=== PATIENT | male | born 1980 | race Hispanic/Latino ===

== ENCOUNTER 2017-01-13 04:28 | Emergency (ER) | payer OTHER ==
[2017-01-13 06:02] LABS: Basophils % (Auto) 0.7 % (0.0-1.8); Eosinophils % (Auto) 1.3 % (0.0-4.3); Mean Corpuscular HGB Conc 30 % (32-34); Platelet Count 450 K/mm3 (140-440); Red Blood Count 5.26 M/mm3 (3.65-5.03); White Blood Count 8.7 K/mm3 (4.5-11.0)
[2017-01-13 06:05] LABS: Hemoglobin 9.8 gm/dl (11.8-15.2)
[2017-01-13 06:06] LABS: Hematocrit 32.5 % (35.5-45.6); Mean Corpuscular Hemoglobin 19 pg (28-32); Mean Corpuscular Volume 62 fl (84-94); Red Cell Distribution Width 20.6 % (13.2-15.2)
[2017-01-13 06:25] LABS: Alanine Aminotransferase 13 units/L (7-56); Albumin 4.3 g/dL (3.9-5); Albumin/Globulin Ratio 1.5 %; Alkaline Phosphatase 75 units/L (35-129); Anion Gap 20 mmol/L; BUN/Creatinine Ratio 26.66; Blood Urea Nitrogen 24 mg/dL (9-20); Carbon Dioxide 23 mmol/L (22-30); Chloride 98.4 mmol/L (98-107); Glucose 105 mg/dL (75-100); Lipase 32 units/L (13-60); Potassium 3.8 mmol/L (3.6-5.0); Sodium 138 mmol/L (137-145); Total Protein 7.2 g/dL (6.3-8.2)
[2017-01-13 08:52] VITALS: BP 149/95
--- NOTE | 2017-01-13 09:33 | XRay Report ---
CHEST TWO VIEWS: 01/13/17 04:28:00 CLINICAL: Shortness of breath. COMPARISON: none FINDINGS: Normal heart and pulmonary vasculature. The lungs are normally expanded and clear. Aortic tortuosity.The bones and soft tissues are normal. IMPRESSION: Normal.No acute cardiopulmonary process.
[2017-01-13] MEDS ORDERED: BOOSTRIX IM ONE (10:03)
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
[2017-01-13 10:54] LABS: Bilirubin,Urine NEG (Negative); Blood,Urine NEG (Negative); Ketones,Urine TR mg/dL (Negative); Leukocyte Esterase,Urine LG (Negative); Nitrite,Urine NEG (Negative); Urobilinogen,Urine < 2.0 mg/dL (<2.0)
[2017-01-13 11:00] LABS: Bacteria,Urine 2+ /HPF (Negative)
[2017-01-13] MEDS ORDERED: VIBRAMYCIN PO ONE (11:02)
[2017-01-13] MEDS ORDERED: XYLOCAINE 1% MPF 5 mL INFILTRATI ONE (11:02)
[2017-01-13] MEDS ORDERED: ROCEPHIN IM ONE (11:02)
--- NOTE | 2017-01-13 11:16 | Cat Scan Report ---
CT ABDOMEN AND PELVIS WITHOUT CONTRAST: 01/13/17 04:28:00 CLINICAL:Right flank pain. TECHNIQUE: Volumetric acquisition and 1.25 millimeter scan reconstructions from the lung bases through the iliac crest. The study was performed without oral contrast. 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 The right kidney is lower than usual and more horizontal than usual in the right flank. A few 1-2 mm bilateral medullary calcifications versus tiny calculi in calyces. However, the renal collecting systems and ureters are nondilated. No evidence of ureteral calculus. Normal liver, bile ducts and gallbladder. Normal stomach, duodenum and pancreas. The spleen is enlarged and measures 12.8 cm in length. No splenic mass is identified. Mild calcifications of the right adrenal gland which is otherwise normal. Normal left adrenal gland. The small bowel and colon are normal. There is a large volume of stool throughout the colon. Portions of a normal appendix are identified and there are no signs of acute appendicitis. Pelvis: Normal urinary bladder, prostate and seminal vesicles. Moderate rectal wall thickening with a suggestion of a constricting lesion of the rectum at the level of the coccyx. The lesion measures at least 5 cm in length. IMPRESSION: 1. Rectal wall thickening suspicious for tumor. A large volume of stool but no bowel obstruction. 2. Tiny bilateral nonobstructive renal calculi versus medullary renal calcifications. 3. No obstructing urinary calculus. 4. Splenomegaly without an identified etiology. No suspicion of portal hypertension or liver disease. 5. Benign calcifications of the right adrenal gland.
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
[2017-01-13 12:01] LABS: Creatine Kinase 138 units/L (55-170)
== END 2017-01-13 13:40 | disposition home or self-care (01) ==
LOC: ED 04:28
DX: R07.89 Other chest pain (principal); N34.2 Other urethritis; M19.90 Unspecified osteoarthritis, unspecified site; R22.9 Localized swelling, mass and lump, unspecified
CPT/HCPCS: 36415; 71020; 73120; 74176; 80053; 81001; 82550; 83690; 84484; 85025; 85379; 87086; 90471; 90715; 93005; 93010; 96372; 99285; J0696